=== PATIENT | male | born 1995 | race Hispanic/Latino ===

== ENCOUNTER 2024-01-06 00:30 | Emergency (ER) | payer SELFPAY ==
[~2024-01-06] VITALS: Ht 170.2 cm; Wt 69.9 kg
[2024-01-06] MEDS: TETRACAINE HCL 0.5% 4 ML OPHTH SOLN OP STA (00:50)
[2024-01-06] MEDS: FLUORESCEIN SODIUM 1 STRIP STRIP ONE (00:51)
[2024-01-06 05:02] VITALS: BP 122/86; PULSE 74; RESP 20; O2SAT 100
== END 2024-01-06 06:31 | disposition short-term general hospital (02) ==
LOC: EDH 00:30 → EDBD 00:30 → EDH 06:31
DX: S02.85XA Fracture of orbit, unspecified, initial encounter for closed fracture (principal); H11.32 Conjunctival hemorrhage, left eye; W22.8XXA Striking against or struck by other objects, initial encounter; Y93.39 Activity, other involving climbing, rappelling and jumping off; Y92.89 Other specified places as the place of occurrence of the external cause; Y99.8 Other external cause status
CPT/HCPCS: 70450; 72125